=== PATIENT | male | born 1980 | race Caucasian/White ===

== ENCOUNTER 2019-01-11 07:00 | Outpatient (CLI) | payer MEDICAID, SELFPAY ==
[2019-01-11 13:19] LABS: ALT 84 U/L (12-78); AST 50 U/L (15-37); Albumin 3.9 g/dL (3.4-5.0); Alkaline Phosphatase 68 U/L (46-116); Anion Gap 10.2 mmol/L (3-11); BUN 21 mg/dL (7-18); Bilirubin, Total 0.3 mg/dL (0.2-1.0); CO2 27.8 mmol/L (21.0-32.0); CREATININE 1.21 mg/dL (0.70-1.30); Calcium 9.3 mg/dL (8.5-10.1); Chloride 102 mmol/L (98-107); Cholesterol 214 mg/dL (50-200); Glucose 100 mg/dL (70-100); HDL Cholesterol 56 mg/dL (40-60); LDL CHOLESTEROL 123 mg/dL (<100); Potassium 3.9 mmol/L (3.5-5.1); Sodium 140 mmol/L (136-145); Total Protein 7.5 g/dL (6.4-8.2); Triglyceride 173 mg/dL (30-150)
[2019-01-11 13:28] LABS: Uric Acid 10.1 mg/dL (3.5-7.2)
== END 2019-01-11 07:20 ==
PROVIDERS: PCP Specialist/Technologist Athletic Trainer; Visit Provider Specialist/Technologist Athletic Trainer
DX: M10.9 Gout, unspecified (principal); Z13.220 Encounter for screening for lipoid disorders; Z13.228 Encounter for screening for other metabolic disorders
CPT/HCPCS: 36415; 80053; 80061; 83721; 84550

== ENCOUNTER 2021-08-21 00:39 | Outpatient (CLI) | payer MEDICAID, SELFPAY ==
[2021-08-21 10:37] VITALS: BP 145/84; PULSE 81; RESP 18; TEMP 37.3; O2SAT 96
[2021-08-21] MEDS: Normal Saline 500 ML 30 ML IV (10:40)
[2021-08-21] MEDS: Normal Saline Flush 10 ML SYR IVP (10:41)
[2021-08-21 10:49] VITALS: BP 145/84; PULSE 81; RESP 18; TEMP 37.3; O2SAT 96
[2021-08-21 11:12] VITALS: BP 142/83; PULSE 76; RESP 18; TEMP 37.1; O2SAT 97
[2021-08-21 11:29] VITALS: BP 131/83; PULSE 70; RESP 20; TEMP 36.6; O2SAT 95
[2021-08-21 12:17] VITALS: BP 129/83; PULSE 64; RESP 18; TEMP 37; O2SAT 96
== END 2021-08-21 12:30 | disposition home or self-care (01) ==
LOC: INF 00:40
PROVIDERS: PCP Specialist/Technologist Athletic Trainer; Visit Provider Family Medicine
DX: U07.1 COVID-19 (principal)
CPT/HCPCS: 96365

== ENCOUNTER 2023-08-24 14:56 | Outpatient (REF) | payer MEDICAID, SELFPAY ==
[2023-08-24 14:43] LABS: HCT 46.6 % (40.0-50.0); HGB 15.5 g/dL (13.5-17.5); MCH 29.6 pg (27.0-33.0); MCHC 33.3 % (32.0-36.0); MCV 89 fL (80-95); Platelet Count 203 10^3/uL (130-400); RBC 5.23 10^6/uL (4.36-5.78); RDW 11.9 % (11.8-14.1); RDW-SD 38.8 fL; WBC 7.95 10^3/uL (4.4-10.8)
[2023-08-24 15:13] LABS: ALT 40 U/L (16-63); AST 27 U/L (15-37); Albumin 4.3 g/dL (3.4-5.0); Alkaline Phosphatase 61 U/L (46-116); Anion Gap 7.4 mmol/L (3-11); BUN 16 mg/dL (7-18); Bilirubin, Total 0.4 mg/dL (0.2-1.0); CO2 28.6 mmol/L (21.0-32.0); Calculated LDL 144 mg/dL (<100); Chloride 101 mmol/L (98-107); Cholesterol 228 mg/dL (<200); Estimated GFR 94.59 (mL/min/1.73m2); Glucose 136 mg/dL (74-106); HDL Cholesterol 54 mg/dL (40-60); Sodium 137 mmol/L (136-145); Triglyceride 153 mg/dL (<150)
== END 2023-08-24 14:57 | disposition home or self-care (01) ==
LOC: NCHCN 14:56
PROVIDERS: PCP Specialist/Technologist Athletic Trainer; Visit Provider Family Medicine
DX: Z00.00 Encounter for general adult medical examination without abnormal findings (principal)
CPT/HCPCS: 80053; 80061; 85027

== ENCOUNTER 2024-03-15 15:06 | Emergency (ER) | payer MEDICAID, SELFPAY ==
[2024-03-15 15:19] VITALS: BP 188/92; PULSE 88; RESP 12; TEMP 36.8; O2SAT 98
--- NOTE | 2024-03-15 15:30 | DI.RAD_ITS ---
Exam(s) XR SHOULDER LT COMPLETE 2+V EXAM: XR SHOULDER LT COMPLETE 2+V CLINICAL HISTORY: left shoulder. TECHNIQUE: 2D digital imaging was performed of the left shoulder. Five images were obtained. AP, G rashey, Y-view and axillary views were obtained. COMPARISON: CR LEFT SHOULDER COMPLETE from 07/18/2016 FINDINGS: BONES: No acute fracture is present. No bony destructive lesion is seen. JOINTS: No dislocation present. Degenerative changes are seen at the glenohumeral joint with a small spur at the inferior aspect of the humeral head. SOFT TISSUE: There is again seen an osseous fragment adjacent to the inferior aspect of the glenoid. IMPRESSION: No acute fracture or dislocation. DATA REPOSITORY: RADIATION DOSE DELIVERED:
--- NOTE | 2024-03-15 21:08 | ED.GENADUL_ITS ---
Discharge Plan Disposition Patient Disposition: Home Condition: Stable Discharge Details Clinical Impression: Acute pain of left shoulder Primary Care Provider: Maikel Ordonez ED Provider: Lori Navas Home Meds and New Rx's Prescriptions: New cyclobenzaprine 10 mg tablet 10 mg PO TID PRNQty: 10 0RF Continued Ibuprofen 800 MG Tablet 800 mg PO Q8H PRN (Reason: Pain) Qty: 15 0RF Discharge Instructions Instructions: Joint Pain Additional Instructions: Take Flexeril as needed for musculoskeletal pain Takes oxycodone sparingly, this is addictive do not combine with alcohol or driving for 8 hours after taking this Please return with worsening pain, fever, chills Follow-up with PT as encouraged and orthopedics with persistent pain, limit lifting as much as possible but continue to range shoulder so you do not develop frozen shoulder Stand Alone Forms: Physical Therapy Referral Referrals: Maikel Ordonez [Primary Care Provider] - 2 days Discharge Data Discharge Date/Time-TO BE ENTERED AT DEPARTURE: 03/15/24 17:49 HPI General Date/Time Provider Initiated Documentation: 03/15/24 15:33 . HPI Narrative: This 44-year-old male presents with left-sided shoulder pain that started 2 days prior to arrival. Denies any chest pain or shortness of breath. Denies any nausea or vomiting. Has pain when he moves this neck laterally to the left. States his pain started after doing typical activities, he does quite a bit of heavy lifting per patient. Denies any fever or headache. Denies any strength or sensation change to left extremity. Related Data Home Medications Medication Instructions Recorded Confirmed Ibuprofen 800 mg PO Q8H PRN Pain ##15 02/12/17 03/15/24 cyclobenzaprine 10 mg tablet 10 mg PO TID PRN #10 tabs 03/15/24 Previous Rx's Medication Instructions Recorded Ibuprofen 800 mg PO Q8H PRN Pain ##15 02/12/17 cyclobenzaprine 10 mg tablet 10 mg PO TID PRN #10 tabs 03/15/24 Allergies Allergy/AdvReac Type Severity Reaction Status Date / Time No Known Allergies Allergy Unverified 03/15/24 15:29 General Stated Complaint: Nk/Back Pain ALLY: 4 Exam Narrative Exam Narrative: .Left shoulder was reproducible tenderness over long head of bicep, pain elicited with abduction and external rotation no visible signs of trauma, neurovascularly intact, no paraspinal muscle tenderness Cardiac rate rhythm regular, lungs clear to auscultation Course Vital Signs Vital signs: Vital Signs Temperature 36.8 C 03/15/24 15:19 Pulse 88 03/15/24 15:19 Respiratory Rate 12 03/15/24 15:19 Blood Pressure 188/92 H 03/15/24 15:19 Pulse Oximetry 98 03/15/24 15:19 Temperature 36.8 C 03/15/24 15:19 Pulse 88 03/15/24 15:19 Respiratory Rate 12 03/15/24 15:19 Respiratory Effort Normal, Non-Labored 03/15/24 15:25 Blood Pressure 188/92 H 03/15/24 15:19 Blood Pressure Position Sitting 03/15/24 15:19 Pulse Oximetry 98 03/15/24 15:19 Oxygen Delivery Method Room Air 03/15/24 15:19 Oxygen Flow Rate 0 03/15/24 15:19 Pain Level 6 03/15/24 15:28 Medical Decision Making 44-year-old gentleman presenting with left shoulder pain, x-rays ordered without evidence of acute abnormality per radiology interpretation my review. Given a sling for comfort, precautions regarding frozen shoulder reviewed. Flexeril for pain, ibuprofen and Tylenol as needed for pain. Return precautions reviewed and patient expressed understanding. Quality:SDOH Health Related Social Needs: No Data to Display PFSH All Active Problems (Updated 03/15/24 @ 16:48 by JAYY Garcia) Acute pain of left shoulder (Acute) Muscle spasm (Acute) Surgical History (Updated 09/12/16 @ 10:04 by Юлия Hanna LPN) Appendectomy Social History Smoking/Tobacco Use Status: Never Smoking risk assessment performed?: Yes Alcohol Intake: current Alcohol Intake frequency: a few times a month Drug use: Never Substance use type: does not use Housing: house Do you feel safe at home: Yes Do you feel safe in your relationship?: Yes PAWSS Have you Been Recently Intoxicated or Drunk Within the Last 30 days?: No Have you Ever Experienced Previous Episodes of Alcohol Withdrawal?: No Have you ever Experienced Withdrawal Seizures?: No Have you ever Experienced Delirium Tremens(DT)s?: No Have you ever undergone Alcohol Rehabilitation Treatment (i.e, inpt ot outpatient treatment programs)?: No Have you ever Experienced Blackouts?: No Have you ever Combined Alcohol with other Downers within the last 90 days?: No Have you ever Combined Alcohol with any other Substance of Abuse during the last 90 days?: No Positive Blood Alcohol level on Presentation? [PCS.BAL]: No Evidence of Increased Autonomic Activity (i.e. HR>120, tremor, sweating, agitation, nausea)?: No Result: 0
== END 2024-03-15 17:49 | disposition home or self-care (01) ==
PROVIDERS: Emergency Provider Physician Assistant; PCP Specialist/Technologist Athletic Trainer
DX: M25.512 Pain in left shoulder (principal); M62.838 Other muscle spasm
CPT/HCPCS: 99283; 73030

== ENCOUNTER 2024-08-22 03:17 | Outpatient (CLI) | payer MEDICAID, SELFPAY ==
--- NOTE | 2024-08-23 15:05 | W.NUTRFU ---
Date of service: 08/22/24 Time of Service: 09:00 Nutrition Note NOTE: Met with Luis Miguel for nutrition visit - referred from provider for higher A1C 6.4now. No diabetes medications at this time. works 4 10 hour days and finds it hard to meal plan. We discussed main goal of losing weight (a 7% loss would benefit insulin resistance) and also staying active - exercising. Recent cessation of etoh use has been a learing experience for luis miguel - feels this is helping with his weight and intake. Discussed meal planning and being aware of carb amounts in food choices due to how easily accessible this group is. We reviewed protein needs and lean protein choices. we reviewed setting up snacks with more than one food choice and increasing protein and veggie intake by including at snacks. Luis Miguel took my contact info should he have any questions or desire for follow up, any more educational resources. Time Spent in Nutritional Counseling and Treatment: 40 min
== END 2024-08-22 03:18 | disposition home or self-care (01) ==
LOC: DS 03:18
PROVIDERS: PCP Family Medicine; Visit Provider Dietitian, Registered
DX: R73.03 Prediabetes (principal)
CPT/HCPCS: 00123; 97802

== ENCOUNTER 2024-10-14 09:50 | Day surgery (SDC) | payer MEDICAID, SELFPAY ==
[2024-10-14 10:44] VITALS: BP 129/90; PULSE 97; RESP 16; TEMP 36.6; O2SAT 96
[2024-10-14] MEDS: Lactated Ringers 1,000 ML 80 ML IV (11:03)
--- NOTE | 2024-10-14 11:03 | ANES.PREOP_ITS ---
General Info Date of Service Date Performed: 10/14/24 Height: 5 ft 8 in Weight: 105.2 kg Body Mass Index (BMI): 35.2 Surgical Procedure: Operation Date: 10/14/24 11:35 Proposed Procedure Side Surgeon janet Desai MD Meds Allergies and Home Medications Allergies Allergy/AdvReac Type Severity Reaction Status Date / Time No Known Allergies Allergy Verified 10/14/24 10:39 Home Medication ?Medication ?Instructions ?Recorded Ibuprofen 800 mg PO Q8H PRN Pain #15 tabs 02/12/17 bisacodyl 5 mg tablet,delayed 5 mg PO ONCE #4 tabs 10/03/24 release (Dulcolax (bisacodyl)) polyethylene glycol 3350 17 17 g PO ONCE #238 grams 10/03/24 gram/dose oral powder multivitamin 1 tab PO DAILY 10/12/24 Current Visit Medications: Current Medications Generic Name Dose Route Start Last Admin Trade Name Freq PRN Reason Stop Dose Admin Ringer's Solution 1,000 mls @ 80 mls/hr 10/14/24 06:00 IV 10/14/24 23:59 INFUSION MARIA T IV Miscellaneous Supplies 1 each 10/14/24 06:00 Iv Access IV 10/14/24 23:59 DIRECTED MARIA T Sodium Chloride 0 ml 10/14/24 06:00 Normal Saline Flush 10 Ml Syr IV 10/14/24 23:59 PRN PRN Sodium Chloride 0 ml 10/14/24 06:00 Normal Saline 10 Ml Vial IJ 10/14/24 23:59 DIRECTED PRN Sterile Water 0 ml 10/14/24 06:00 Water,Injection,Sterile 10 Ml Vial IJ 10/14/24 23:59 DIRECTED PRN PFSH Active Problems Active Problems: Problem Status Onset Code Muscle spasm Acute M62.838 Medical History Medical History Alcohol abuse Surgical History Surgical History Hx of hand surgery Hx of shoulder surgery Appendectomy Tobacco Smoking/Tobacco Use Status: Never Alcohol Alcohol Intake: former Substance Use Substance use: Never Substance use type: does not use Vital Signs and Lab Results Vital Signs Most Recent Vital Signs in EMR: Most Recent Vital Signs Temp Pulse Resp BP Pulse Ox 36.6 C 97 H 16 129/90 96 10/14/24 10:44 10/14/24 10:44 10/14/24 10:44 10/14/24 10:44 10/14/24 10:44 Lab Results Blood Type / Crossmatch: 2 No Data to Display Complete Blood Count: 2 No Data to Display Complete Metabolic Panel: 2 No Data to Display Liver Function Panel: 2 No Data to Display Coagulation Panel: 2 No Data to Display Cardiac Panel: 2 No Data to Display Arterial Blood Gas: 2 No Data to Display Venous Blood Gas: 2 No Data to Display Pancreas Panel: 2 No Data to Display Thyroid Panel: 2 No Data to Display Infectious Disease: 2 No Data to Display Blood Cultures: 2 No Data to Display Toxicology Panel: 2 No Data to Display Anesthesia Assessment and Plan Anesthesia History Personal History: No History of Anesthesia Complications Family History: No Family History of Anesthesia Complications Exercise Tolerance Exercise Tolerance: Metabolic Equivalents>4 Pertinent Negatives Pertinent Negatives: No Symptoms of GERD, No Major Cardiovascular Symptoms or Complaints, No Major Pulmonary Symptoms or Complaints and No History of CVA/TIA Cardiac & Pulmonary Exam Cardiac Exam: Normal S1/S2 Heart Sounds Pulmonary Exam: Clear Bilateral Breath Sounds Implantable Cardiac Device Does patient have a Pacemaker or an ICD?: No Airway Exam Known Difficult Airway: No Mallampati Class: 2 Mouth Opening: Normal (> 3cm) Thyromental Distance: Greater than 3 cm Neck Range of Motion: Full ROM Neck Circumference: Normal Teeth Condition: Normal Dentition Tooth Numberin 1. missing 2. missing 3. missing 4. missing ASA Classification ASA Score: ASA 2 Emergency Case?: No NPO Status NPO Status: NPO Clears >2 hours, Solids >8 hours Anesthesia Plan Resuscitation Status: Full Code Anesthesia Technique: General Anesthesia Airway Planned: Natural Airway Monitors Used: Standard Monitors
[2024-10-14 11:05] VITALS: BMI 35.2
--- NOTE | 2024-10-14 11:59 | W.COLOREPORT ---
Date of service: 10/14/24 Time of Service: 11:59 Colonoscopy Report Date of procedure: 10/14/24 Pre-op diagnosis general: screening colonoscopy Post-op diagnosis procedure note: same Procedure: colonoscopy Surgeon: Valerie Desai Anesthesia Type: General:No Airway Pathology: none sent Complications: None Indications: screening for colon polyps Findings: negative colonoscopy., good prep Procedure Description: After the risks, benefits, and alternatives of the procedure were thoroughly explained, informed consent was obtained. The Patient is brought to the procedure room and time out is performed confirming patient identity, nature of procedure. Patient is connected to monitoring devices including O2 sat, EKG and given supplemental oxygen per anesthesia. After appropriate anesthetic is obtained, patient is placed in the left lateral decubitus position and digital rectal exam performed with the findings noted . The colonoscope is inserted through the anus and guided under direct vision to the proximal colon as confirmed by presence of the appendiceal orifice and the ileocecal valve. The colonoscope is then slowly withdrawn , inspecting all aspects of the mucosa completely. Findings and any associated intervention, are noted above. The colonoscope was then completely withdrawn from the patient and the procedure terminated. The patient tolerated the procedure well and is transferred back to the Day surgery unit in stable condition.
[2024-10-14 12:00] VITALS: BP 109/67; PULSE 82; RESP 18; TEMP 36.5; O2SAT 95
--- NOTE | 2024-10-14 12:12 | W.ANESPOSTOP ---
Postoperative Evaluation Date, Time and Location Date Performed: 10/14/24 Time Performed: 12:02 Patient Location: Day Surgery Unit Vital Signs Most Recent Imported Vital Signs: Most Recent Vital Signs Temp Pulse Resp BP Pulse Ox 36.5 C 82 18 109/67 95 10/14/24 12:00 10/14/24 12:00 10/14/24 12:00 10/14/24 12:00 10/14/24 12:00 Pain Score Most Recent Pain Score: Most Recent Pain Score Pain Level 0 10/14/24 12:00 Assessment Mental Status: Awake (Alert & Oriented to Patient Baseline) Airway and Respiratory Function: Patent airway with normal (patient baseline) respiratory exam Cardiovascular Function: Hemodynamically Stable Hydration Status: Adequately Hydrated Nausea & Vomiting: No Nausea or Vomiting Pain: Pt. Denies Any Pain Peripheral Nerve Block: Patient did not receive a nerve block
[2024-10-14 12:25] VITALS: BP 116/71; PULSE 73; RESP 18; TEMP 36.2; O2SAT 94
== END 2024-10-14 12:40 | disposition home or self-care (01) ==
PROVIDERS: PCP Family Medicine; Visit Provider Surgery
PROC: 0DJD8ZZ Inspection of Lower Intestinal Tract, Via Natural or Artificial Opening Endoscopic (ICD-10-PCS; CPT 45378; principal; 2024-10-14 11:30)
DX: Z12.11 Encounter for screening for malignant neoplasm of colon (principal)
CPT/HCPCS: 45378; J2704

== ENCOUNTER 2025-08-14 13:19 | Outpatient (REF) | payer MEDICAID, SELFPAY ==
[2025-08-14 15:31] LABS: Cholesterol 199 mg/dL (<200); HDL Cholesterol 66 mg/dL (>40)
== END 2025-08-14 13:20 | disposition home or self-care (01) ==
LOC: NCHCN 13:19
PROVIDERS: PCP Family Medicine; Visit Provider Family Medicine
DX: E78.5 Hyperlipidemia, unspecified (principal)
CPT/HCPCS: 80061